=== PATIENT | male | born 1965 | race Caucasian/White ===

== ENCOUNTER 2017-03-20 14:02 | Observation (INO) | payer BC ==
[~2017-03-20] VITALS: Ht 188 cm; Wt 150.2 kg
--- NOTE | 2017-03-20 14:02 | NUR ---
ARRIVAL ARRIVES TO ROOM 122 VIA [facility] WITH [facility]. PATIENT TRANSFERRED SELF FROM ST[facility] TO HOSPITAL BED. O2 RA. IVL IN PLACE. IV STARTED AT [facility]. PATIENT CURRENTLY DENIES CHEST PAIN OR SHORTNESS OF AIR. FAMILY AT BEDSIDE. WILL CONTINUE TO MONITOR.
[2017-03-20 14:20] VITALS: BP 200/102; PULSE 77; RESP 20; TEMP 97.9; O2SAT 97
[2017-03-20 14:21] VITALS: Ht 188 cm; Wt 150.2 kg
[2017-03-20] MEDS ORDERED: HYDR25TA PO (14:25)
[2017-03-20] MEDS ORDERED: ASPI-557 PO (14:25)
[2017-03-20] MEDS ORDERED: MULT-933 PO (14:25)
[2017-03-20] MEDS ORDERED: LISI40TA4 PO (14:25)
[2017-03-20] MEDS ORDERED: PRN ORDERS MC (14:30)
[2017-03-20] MEDS ORDERED: ONDANSETRON 4mg/2ml INJECTION IV PRN (14:30)
[2017-03-20] MEDS ORDERED: MORPHINE SULFATE 4 MG SYRINGE IV PRN (14:30)
[2017-03-20] MEDS: LABETALOL 100 MG TABLET PO SCH (14:37)
[2017-03-20 14:46] VITALS: BP 181/93; PULSE 79
[2017-03-20 15:04] VITALS: PULSE 76; RESP 20
--- NOTE | 2017-03-20 15:16 | DI ---
Indication: ITS.REASON: hypertension PROCEDURE: CHEST 1 VIEW: Encounter: Initial Comparison: None FINDINGS: The lungs are clear. There is no abnormal airspace opacity, pleural effusion or pneumothorax identified. The cardiac silhouette is mild to moderately enlarged. The pulmonary vasculature and mediastinum are within normal limits. No significant skeletal abnormality is seen. IMPRESSION: Mild to moderate enlargement of the cardiac silhouette could be due to cardiomegaly or pericardial effusion. .
--- NOTE | 2017-03-20 15:41 | HPPDOC ---
HPI - Adult Date DATE: 03/20/17 TIME: 14:29 General Date of Admission Date of Admission: March 20, 2017 at 14:02 Chief Complaint: hypertensive urgency History of Present Illness Boogie is a 51 year old male who was being seen in [place] earlier today for 2 tick bites when he was found to have diastolic BP in the 100s. He was taken to [facility] ED and was given 2 doses of IV Labetalol, oral Norvasc 10mg and Aspirin 324mg. His troponin was found to be 0.140 and K+ 3.4. EKG was Sinus rhythm without ischemic changes. He was transferred to [facility] and admitted to . Upon arrival to the Surgical unit his BP was 200/104. He reports fever, dizziness, lightheadedness and nausea that he associated with his tick bites. He reports a "massive headache yesterday". He states that his PCP Dr. Zurita put him on Lisinopril and HCTZ a long time ago and has increased them 1 time. He has not been seen in some time because he gets 1 year of refills when he is seen. He also does not measure his BP at home. He denies recent illness, chills , sore throat, cough, chest pain, dyspnea, diarrhea or dysuria. Past Medical History Past Medical History Metabolic: hypertension, other (obesity), DENIES: diabetes, hypercholesterolemia Cardiac: DENIES: A-fib, CAD, CHF, NV Surgical History General: hernia Current Medications Home Meds Reported Medications Multivitamin (Multi-Day Vitamins) 1 Each Tablet, 1 TAB PO DAILY, #30 TAB 03/20/17 Aspirin (Aspir 81) 81 Mg Tablet., 1 TAB PO DAILY, #30 TAB 5 Refills 03/20/17 Hydrochlorothiazide (Hydrochlorothiazide) 25 Mg Tablet, 1 TAB PO WB, TAB 03/20/17 Lisinopril (Lisinopril) 40 Mg Tablet, 40 MG PO DAILY for HYPERTENSION, TAB 03/20/17 Allergies: Coded Allergies: No Known Drug Allergies (Verified Allergy, Unknown, 03/20/17) Family History FOUND: diabetes Vaccines Social History Smoking Status: Never smoker Substance Use Type: does not use Marital Status: Sexuality: female partner Advance Directives: No DPOA for Healthcare Only Review of Systems Constitutional: REPORTS: dizziness, fever, DENIES: chills, fatigue, syncope, weakness Eyes Vision: DENIES: blurring ENMT Hearing: DENIES: tinnitus Balance: DENIES: vertigo Sinuses: NOT FOUND: rhinorrhea Mouth/Throat: DENIES: sore throat Cardiovascular DENIES: chest pain, dyspnea on exertion, murmur, orthopnea, paroxysmal nocturnal dysp Rhythm/Rate: DENIES: irregular beat, palpitations, tachycardia Vascular: pedal edema Pulmonary Respiratory: DENIES: cough, sputum GI Upper Abdomen: nausea, DENIES: vomiting Lower Abdomen: DENIES: blood in stool, diarrhea General: DENIES: dysuria Musculoskeletal General: DENIES: weakness Integumentary Skin: see HPI Neurological General: headache, see HPI, DENIES: seizures, syncope All Other Systems All Other Systems: Reviewed (remainder of 10-point ROS Neg.) Physical Exam General General Nourishment: well nourished, well developed, obese, apparent age Vital Signs Vital Signs Date Time Temp Pulse Resp B/P Pulse Ox O2 Delivery O2 Flow Rate FiO2 03/20/17 14:20 97.9 77 20 200/102 97 Room Air Height (Feet): 6 Height (Inches): 2.00 Telemetry Rhythm: Sinus Rhythm ENMT Brief: FOUND: mucosa moist Neck Brief: NOT FOUND: JVD, carotid bruits Respiratory Brief: FOUND: clear all sneed, equal bilaterally (diminished) Cardiovascular (brief) Cardiac Brief: FOUND: pedal edema (trace), regular rate, regular rhythm, NOT FOUND: click, gallop, murmur Abdomen (brief) Abdominal Brief: FOUND: BS normo active x4, soft, NOT FOUND: tender Integumentary (brief) Integumentary Brief: FOUND: dry, pink, warm Neurologic RN Documented GCS Eye Opening: Verbal: Motor: Total: Psychiatric (brief) FOUND: alert, attentive, oriented EKG SR, NSST changes Radiology DATE OF EXAM: 03/20/17 ORDERING DOCTOR: PAIGE VENEGAS APRN TYPE OF EXAM: CHEST 1 VIEW REASON FOR EXAM: hypertension Indication: ITS.REASON: hypertension PROCEDURE: CHEST 1 VIEW: Encounter: Initial Comparison: None FINDINGS: The lungs are clear. There is no abnormal airspace opacity, pleural effusion or pneumothorax identified. The cardiac silhouette is mild to moderately enlarged. The pulmonary vasculature and mediastinum are within normal limits. No significant skeletal abnormality is seen. IMPRESSION: Mild to moderate enlargement of the cardiac silhouette could be due to cardiomegaly or pericardial effusion. Assessment & Plan Problems: (1) Hypertensive urgency Status: Acute Assessment & Plan: Start Labetalol 200mg po BID, and continue home Lisinopril and HCTZ. Hydralazine 20mg IV Q4H PRN SBP >180 (2) Obesity Status: Chronic Qualifiers: Obesity type: due to excess calories Obesity severity: morbid Qualified Codes: E66.01 - Morbid (severe) obesity due to excess calories Plan/Intensity of Service Repeat Troponin is negative, will continue to trend.Echo report pending. HTN: Start Labetalol 200mg po BID, and continue home Aspirin, Lisinopril and HCTZ. Hydralazine 20mg IV Q4H PRN SBP >180. Lovenox for DVT prophylaxis. DVT Prophylaxis: Lovenox Code Status Full Code Hospital Course Summary Disclaimer The hospital course summary below is not to be considered part of the above Progress Note. PAIGE VENEGAS CREW PERSON March 20, 2017 14:33
[2017-03-20] MEDS: ENOXAPARIN 40 MG/0.4 ML INJECTION SQ SCH (15:45)
[2017-03-20] MEDS ORDERED: POTASSIUM CHLORIDE 20 MEQ TABLET PO ONE (15:45)
[2017-03-20 15:49] VITALS: BP 159/84; PULSE 79
--- NOTE | 2017-03-20 17:53 | NUR ---
STATUS PT HAS DENIED CHEST PAIN THIS SHIFT. UPON TRANSFERRING TO AND FROM BATHROOM, PT REPORTED SOA. PT STATED HE HAS BEEN EXPERIENCED SOA WITH EXERTION WITHIN THE PAST FEW WEEKS AND THIS SOA IS NOT NEW. PT'S BP DECREASED WITH MEDICATION ADMINISTRATION INTO THE 150'S SYSTOLIC. PT HAS DENIED N/V. ADEQUATE PO INTAKE OBTAINED THIS SHIFT. PT UP AD ESTER. FAMILY PRESENT IN ROOM SINCE ADMIT. TELE NSR. VITALS STABLE ON ROOM AIR. WILL CONTINUE TO MONITOR.
[2017-03-20] MEDS: ACETAMINOPHEN 325 MG TABLET PO PRN (18:12)
[2017-03-20 19:03] VITALS: BP 185/93; PULSE 76; RESP 20; TEMP 98.7; O2SAT 98
[2017-03-20] MEDS ORDERED: KETOROLAC 30mg/ml INJECTION IV ONE (22:00)
[2017-03-20] MEDS ORDERED: DiphenhydrAMINE 25 MG CAPSULE PO ONE (22:00)
[2017-03-20] MEDS ORDERED: IBUPROFEN 400 MG TABLET PO PRN (22:00)
[2017-03-20] MEDS ORDERED: ACETAMINOPHEN/CODEINE 300mg/30mg TABLET PO PRN (22:00)
[2017-03-20] MEDS ORDERED: TRAMADOL 50 MG TABLET PO PRN (22:00)
[2017-03-21 00:02] VITALS: BP 128/65; PULSE 83; RESP 17; TEMP 98.7; O2SAT 94
[2017-03-21] MEDS: LABETALOL 100 MG TABLET PO SCH ×2 (00:27→08:24)
[2017-03-21] MEDS: ACETAMINOPHEN 325 MG TABLET PO PRN (00:27)
--- NOTE | 2017-03-21 01:17 | NUR ---
Chart Check 24 hour chart check completed
[2017-03-21 02:48] LABS: BASOPHILS % (AUTO) 0.3 % (0-2); EOSINOPHILS # (AUTO) 0.4 T/MM3 (0-0.5); EOSINOPHILS % (AUTO) 3.9 % (0-4); HCT - HEMATOCRIT 40.2 % (41-53); HGB - HEMOGLOBIN 13.2 GM/DL (13.5-17.5); IMMATURE GRANULOCYTE # (AUTO) 0.02 T/MM3 (0.00-0.03); IMMATURE GRANULOCYTE % (AUTO) 0.2 % (0.0-0.5); LYMPHOCYTES % (AUTO) 31.2 % (23-45); MEAN CORPUSCULAR HGB 27.6 UUG (26-34); MEAN CORPUSCULAR HGB CONC(MCHC 32.8 GM/DL (31-37); MEAN CORPUSCULAR VOLUME 84.1 UM3 (80-100); MEAN PLATELET VOLUME 10.3 UM3 (9.4-12.4); MONOCYTES # (AUTO) 0.6 T/MM3 (0-0.8); MONOCYTES % (AUTO) 5.8 % (0-9.0); NEUTROPHILS #(AUTO)-ABSOLUTE 5.7 T/MM3 (1.8-7.7); NEUTROPHILS % (AUTO) 58.6 % (33-66); RED BLOOD COUNT 4.78 M/MM3 (4.50-5.90); WBC - WHITE BLOOD COUNT 9.7 T/MM3 (4.5-11.0)
[2017-03-21 02:56] LABS: LDL CHOLESTEROL,CALCULATED 101.4 (66-159); RISK FACTOR 5.2 RATIO (0-5.0); VLDL CHOLESTEROL 38.6 MG/DL (0-28)
[2017-03-21 02:58] LABS: ANION GAP 11 MEQ/L (5-15); BUN/CREATININE RATIO 19 RATIO (6-26); CALCIUM 9.3 MG/DL (8.4-10.2); CHLORIDE 101 MEQ/L (98-107); CO2 - CARBON DIOXIDE 29 MEQ/L (22-30); CREATININE 1.1 MG/DL (0.8-1.5); GLOMERULAR FILTRATION RATE 71; GLUCOSE 153 MG/DL (75-110); MAGNESIUM 2.1 MG/DL (1.6-2.3); POTASSIUM 3.5 MEQ/L (3.6-5); SODIUM 141 MEQ/L (134-144)
[2017-03-21 04:22] VITALS: BP 136/81; PULSE 81; RESP 21; TEMP 98.9; O2SAT 94
--- NOTE | 2017-03-21 06:25 | NUR ---
SUMMARY RESTED THROUGH PART OF THE NIGHT WITH EYES CLOSED. MEDICATED AT HS WITH TORADOL, ZOFRAN, AND BENADRYL FOR A PERSISTENT, SEVERE SILVERMAN. ORDERS RECEIVED BY ANGELICA BROWNING APRN. LATER MEDICATED WITH TYLENOL #3 FOR A MODERATE SILVERMAN. DENIES SILVERMAN THIS AM. ONE DOSE OF PRN HYDRALAZINE GIVEN AT BEGINNING OF SHIFT. NO FURTHER NEEDS FOR HYDRALAZINE DURING THE NIGHT. PT IS UP AD ESTER TO THE BATHROOM. SPOUSE REMAINS AT THE BEDSIDE. NO FURTHER CHANGE IN ASSESSMENT. WILL CONTINUE TO MONITOR.
--- NOTE | 2017-03-21 06:48 | NUR ---
FALL RISK ASSESSMENT - PHARMACY This patient has a MEDIUM FALL RISK with medications. Patient's Risk Score >3 <6. Medication appropriateness: Medication ordered for hypertension appropriate including Labetalol 200 mg bid, Hydrochlorothiazide 25 mg daily, Lisinopril 40 mg daily, and Hydralazine 20 mg iv prn. The blood pressures have been normal to a liitle high, and the pulses have ran okay. No issues with hypotension. The patient has take very little pain medication. Recommdations: Continue care for a moderate risk patient. Wicho Trammell, Pharmacist
--- NOTE | 2017-03-21 07:22 | NUR ---
PHYSICIAN CONSULT FOR TICK BITE ATTEMPTED TO CONSULT DR. WILSON PER ORDER FROM ANGELICA BROWNING APRN. DR. WILSON STATED IT WOULD BE A COUPLE DAYS BEFORE SHE WOULD BE ABLE TO SEE HIM. ANGELICA NOTIFIED-OK WITH CONSULTING HOSPITALIST. DR. OLSON NOTIFIED.
[2017-03-21 07:40] VITALS: PULSE 81; RESP 21
[2017-03-21 07:41] VITALS: BP 143/77; PULSE 77; RESP 16; TEMP 99.4; O2SAT 94
[2017-03-21] MEDS ORDERED: HYDROCHLOROTHIAZIDE 25 MG TABLET PO SCH (08:00)
[2017-03-21] MEDS: ENOXAPARIN 40 MG/0.4 ML INJECTION SQ SCH (08:24)
--- NOTE | 2017-03-21 08:41 | NUR ---
CM CM IN TO VISIT PATIENT, HE IS A&O. HAS BEEN PRESENT, BUT OUT OF ROOM AT THIS TIME. PATIENT PLANS TO DISCHARGE HOME, DENIES DISCHARGE NEEDS. CM CONTACT INFORMATION GIVEN. Addendum: 03/21/17 at 0842 by JANA MALDONADO RN Amended: Links added.
[2017-03-21] MEDS ORDERED: ENOXAPARIN 40 MG/0.4 ML INJECTION SQ SCH (09:00)
[2017-03-21] MEDS ORDERED: LISINOPRIL 40 MG TABLET PO SCH (09:00)
[2017-03-21] MEDS ORDERED: ASPIRIN *EC* 81mg TABLET PO SCH (09:00)
[2017-03-21] MEDS ORDERED: DOXYCYCLINE 100 MG TABLET PO SCH (10:00)
--- NOTE | 2017-03-21 10:14 | CONSPD ---
BRET CORONA V EDITOR DEPARTMENT 03/21/17 1005: Consultation Info Date DATE: 03/21/17 TIME: 10:01 Date of Consultation: March 21, 2017 Attending Physician: Patricia Reason for Consultation: Tick bites HPI - Adult Date DATE: 03/21/17 TIME: 10:01 General Chief Complaint: hypertensive urgency, Tick bites History of Present Illness Patient is a 51-year-old male who presented to his primary care provider in [place], [place] yesterday for evaluation of dizziness, nausea and known tick bites. Upon arrival to the clinic. He was found to be hypertensive with a diastolic blood pressure in the low 100s. He was then transferred to [facility] emergency room for further evaluation. There he was given labetalol and Norvasc as well as aspirin. Troponin was found to be elevated at 0.140. Patient was then transferred to [facility] under the care of Dr. Peoples for further cardiac evaluation and treatment. Today, medical consultation was placed to the hospitalist services for evaluation, recommendations for treatment of tick bites. Patient is seen this morning on initial examination. He reports that he initially found the 1st tick bite on the left lateral thigh on Saturday. The tick was removed at that time. Erythema continued to grow. On Monday 03/19. Patient's found a 2nd tick on his left mid thoracic back that appeared to be . The following day, yesterday, he began having systemic symptoms including chills, nausea and dizziness. Today he is feeling better and without complaints of pain. Eyes having fevers or chills, however, he does feel cold overall. No chest pain, shortness of breath or GI complaints. He is noted to have 2 areas of erythema migrans surrounding each bite. Past Medical History Past Medical History Hypertension Cardiomegaly(reported by patient) Chronic tobacco dependence Surgical History Patient's Surgical History: Right inguinal hernia repair Left right breast tissue removal- as a child Current Medications Home Meds Reported Medications Multivitamin (Multi-Day Vitamins) 1 Each Tablet, 1 TAB PO DAILY, #30 TAB 03/20/17 Aspirin (Aspir 81) 81 Mg Tablet.dr, 1 TAB PO DAILY, #30 TAB 5 Refills 03/20/17 Hydrochlorothiazide (Hydrochlorothiazide) 25 Mg Tablet, 1 TAB PO WB, TAB 03/20/17 Lisinopril (Lisinopril) 40 Mg Tablet, 40 MG PO DAILY for HYPERTENSION, TAB 03/20/17 Allergies: Coded Allergies: No Known Drug Allergies (Verified Allergy, Unknown, 03/20/17) Family History Family History: Father-COPD Mother-CHF, diabetes Social History Smoking Status: Current every day smoker Substance Use Type: does not use Alcohol Intake: none Marital Status: Sexuality: female partner Housing: house Advance Directives: No DPOA for Healthcare Only Social History Comments PCP Dr Zurita ([place], [place]) Review of Systems Constitutional: REPORTS: chills Integumentary Skin: color change, other (Erythema migrans to left lateral thigh and left thoracic back), see HPI Physical Exam General General Nourishment: well nourished, well developed, obese Vital Signs Vital Signs Date Time Temp Pulse Resp B/P Pulse Ox O2 Delivery O2 Flow Rate FiO2 03/21/17 07:41 99.4 77 16 143/77 94 Room Air Height (Feet): 6 Height (Inches): 2.00 Telemetry Rhythm: Sinus Rhythm ENMT Brief: FOUND: mucosa moist, normal dentition, NOT FOUND: pharnyx erythema Neck Brief: FOUND: midline, NOT FOUND: adenopathy, carotid bruits, tracheal deviation Respiratory Brief: FOUND: clear all sneed, equal bilaterally, NOT FOUND: wheezes Cardiovascular (brief) Cardiac Brief: FOUND: regular rate, regular rhythm, NOT FOUND: murmur, pedal edema Abdomen (brief) Abdominal Brief: FOUND: BS normo active x4, soft, NOT FOUND: distended, tender Integumentary (brief) Integumentary Brief: FOUND: dry, other (erythema migrains- Left lateral thigh, left mid back), pink, warm Neurologic (brief) Neurological Brief: FOUND: cranial 2-12 intact Neurologic RN Documented GCS Eye Opening: Verbal: Motor: Total: Psychiatric (brief) FOUND: alert, attentive, normal affect, oriented Laboratory Laboratory Tests Test 03/20/17 14:53 03/20/17 20:23 03/21/17 02:23 Magnesium Level 2.0MG/DL 2.1MG/DL Troponin I < 0.012ng/ml < 0.012ng/ml < 0.012ng/ml Chemistry Specimen Hemolysis < 15 < 15 < 15 White Blood Count 9.7T/MM3 Red Blood Count 4.78M/MM3 Hemoglobin 13.2GM/DL Hematocrit 40.2% Mean Corpuscular Volume 84.1UM3 Mean Corpuscular Hemoglobin 27.6UUG Mean Corpuscular Hemoglobin Concent 32.8GM/DL RDW Standard Deviation 46.1FL Platelet Count 270T/MM3 Mean Platelet Volume 10.3UM3 Immature Granulocyte % (Auto) 0.2% Neutrophils (%) (Auto) 58.6% Lymphocytes (%) (Auto) 31.2% Monocytes (%) (Auto) 5.8% Eosinophils (%) (Auto) 3.9% Basophils (%) (Auto) 0.3% Absolute Immature Granulocyte (auto 0.02T/MM3 Absolute Neutrophils (auto) 5.7T/MM3 Absolute Lymphocytes (auto) 3.0T/MM3 Absolute Monocytes (auto) 0.6T/MM3 Absolute Eosinophils (auto) 0.4T/MM3 Absolute Basophils (auto) 0.0T/MM3 Turbidity < 20 Sodium Level 141MEQ/L Potassium Level 3.5MEQ/L Chloride Level 101MEQ/L Carbon Dioxide Level 29MEQ/L Anion Gap 11MEQ/L Blood Urea Nitrogen 21.0MG/DL Creatinine 1.1MG/DL Glomerular Filtration Rate Calc 71 BUN/Creatinine Ratio 19RATIO Glucose Level 153MG/DL Calculated Osmolality 277MOSM/KG Calcium Level 9.3MG/DL Icterus Index < 2 Triglycerides Level 193MG/DL Cholesterol Level 173MG/DL LDL Cholesterol, Calculated 101.4 VLDL Cholesterol 38.6MG/DL HDL Cholesterol Direct 33MG/DL Cholesterol/HDL Ratio 5.2RATIO Impression/Recommendation Problems: (1) Erythema migrans (Lyme disease) Status: Acute (2) Tick bite Status: Acute Qualifiers: Encounter type: initial encounter Qualified Codes: W57.XXXA - Bitten or stung by nonvenomous insect and other nonvenomous arthropods, initial encounter (3) Hypertension Status: Chronic (4) Tobacco dependence Status: Chronic (5) Obesity Status: Chronic Qualifiers: Obesity type: due to excess calories Obesity severity: morbid Qualified Codes: E66.01 - Morbid (severe) obesity due to excess calories Recommendation Continue cardiac evaluation and hypertension management as per Dr. Peoples Based on clinical examination of the erythema migrans as well as history of known tick bites recommend treatment for Lyme disease. Doxycycline 100 milligrams twice a day for 14 day course ending on 04/05/17 May use Tylenol or ibuprofen as needed for pain or fevers. Recommend follow up with PCP Dr Zurita in 1 week for recheck or return to the ER for worsening symptoms. Encourage tobacco cessation Appreciate medical consultation. We will continue to follow patient during his stay at [facility] ERIK OLSON MD 03/21/17 1230: Past Medical History Current Medications Home Meds Reported Medications Multivitamin (Multi-Day Vitamins) 1 Each Tablet, 1 TAB PO DAILY, #30 TAB 03/20/17 Aspirin (Aspir 81) 81 Mg Tablet.dr, 1 TAB PO DAILY, #30 TAB 5 Refills 03/20/17 Hydrochlorothiazide (Hydrochlorothiazide) 25 Mg Tablet, 1 TAB PO WB, TAB 03/20/17 Lisinopril (Lisinopril) 40 Mg Tablet, 40 MG PO DAILY for HYPERTENSION, TAB 03/20/17 Allergies: Coded Allergies: No Known Drug Allergies (Verified Allergy, Unknown, 03/20/17) Impression/Recommendation Problems: (1) Erythema migrans (Lyme disease) Status: Acute (2) Tick bite Status: Acute Qualifiers: Encounter type: initial encounter Qualified Codes: W57.XXXA - Bitten or stung by nonvenomous insect and other nonvenomous arthropods, initial encounter (3) Hypertension Status: Chronic (4) Tobacco dependence Status: Chronic (5) Obesity Status: Chronic Qualifiers: Obesity type: due to excess calories Obesity severity: morbid Qualified Codes: E66.01 - Morbid (severe) obesity due to excess calories Recommendation Have independently interviewed and examined pt. Chart reviewed. Case discussed with my EDITOR DEPARTMENT. Care plan developed with my supervision; agree with above. Recent tick bites. The one on his back more problematic- found a tick there. Very itchy. Did have some purulent drainage. Some fevers/chills. No n/v/ d. Urinating well. Lungs; decreased, no distress CV: regular Skin: area of erythema on left lateral leg and back c/w with recent insect bite. MSE: awake alert appropriate Plan: Doxycycline 100mg BID for 14 day. Try not to scratch area. Keep clean and dry-warm soapy water with gentle scrubbing as needed. Topical Benadryl as needed for itch. F/U with PCP BRET CORONA APRN March 21, 2017 10:05 ERIK OLSON MD March 21, 2017 12:30
[2017-03-21] MEDS ORDERED: POTASSIUM CHLORIDE 20 MEQ TABLET PO ONE (10:15)
[2017-03-21 15:38] VITALS: BP 149/80; PULSE 82; RESP 18; TEMP 98.7; O2SAT 93
[2017-03-21] MEDS ORDERED: LABE100T PO (16:51)
[2017-03-21] MEDS ORDERED: ATOR40TA PO (16:51)
[2017-03-21] MEDS ORDERED: DOXY100T2 PO (16:51)
--- NOTE | 2017-03-21 17:05 | DSPDOC ---
General Date Date DATE: 03/21/17 TIME: 16:54 Attending Physician Kye Peoples MD Admitting Physician Kye Peoples MD Consulting Physician Anson Gomez MD Admitting Diagnosis Hypertensive Urgency Discharge Diagnosis Hypertensive urgency Laboratory Laboratory Tests Test 03/20/17 14:53 03/20/17 20:23 03/21/17 02:23 Magnesium Level 2.0MG/DL 2.1MG/DL Troponin I < 0.012ng/ml < 0.012ng/ml < 0.012ng/ml Chemistry Specimen Hemolysis < 15 < 15 < 15 White Blood Count 9.7T/MM3 Red Blood Count 4.78M/MM3 Hemoglobin 13.2GM/DL Hematocrit 40.2% Mean Corpuscular Volume 84.1UM3 Mean Corpuscular Hemoglobin 27.6UUG Mean Corpuscular Hemoglobin Concent 32.8GM/DL RDW Standard Deviation 46.1FL Platelet Count 270T/MM3 Mean Platelet Volume 10.3UM3 Immature Granulocyte % (Auto) 0.2% Neutrophils (%) (Auto) 58.6% Lymphocytes (%) (Auto) 31.2% Monocytes (%) (Auto) 5.8% Eosinophils (%) (Auto) 3.9% Basophils (%) (Auto) 0.3% Absolute Immature Granulocyte (auto 0.02T/MM3 Absolute Neutrophils (auto) 5.7T/MM3 Absolute Lymphocytes (auto) 3.0T/MM3 Absolute Monocytes (auto) 0.6T/MM3 Absolute Eosinophils (auto) 0.4T/MM3 Absolute Basophils (auto) 0.0T/MM3 Turbidity < 20 Sodium Level 141MEQ/L Potassium Level 3.5MEQ/L Chloride Level 101MEQ/L Carbon Dioxide Level 29MEQ/L Anion Gap 11MEQ/L Blood Urea Nitrogen 21.0MG/DL Creatinine 1.1MG/DL Glomerular Filtration Rate Calc 71 BUN/Creatinine Ratio 19RATIO Glucose Level 153MG/DL Calculated Osmolality 277MOSM/KG Calcium Level 9.3MG/DL Icterus Index < 2 Triglycerides Level 193MG/DL Cholesterol Level 173MG/DL LDL Cholesterol, Calculated 101.4 VLDL Cholesterol 38.6MG/DL HDL Cholesterol Direct 33MG/DL Cholesterol/HDL Ratio 5.2RATIO Laboratory Tests Test 03/20/17 14:53 03/20/17 20:23 03/21/17 02:23 Magnesium Level 2.0MG/DL (1.6-2.3) 2.1MG/DL (1.6-2.3) Troponin I < 0.012ng/ml (0-0.12) < 0.012ng/ml (0-0.12) < 0.012ng/ml (0-0.12) Chemistry Specimen Hemolysis < 15 (0-25) < 15 (0-25) < 15 (0-25) White Blood Count 9.7T/MM3 (4.5-11.0) Red Blood Count 4.78M/MM3 (4.50-5.90) Hemoglobin 13.2GM/DL (13.5-17.5) Hematocrit 40.2% (41-53) Mean Corpuscular Volume 84.1UM3 (80-100) Mean Corpuscular Hemoglobin 27.6UUG (26-34) Mean Corpuscular Hemoglobin Concent 32.8GM/DL (31-37) RDW Standard Deviation 46.1FL (36.9-50.2) Platelet Count 270T/MM3 (130-400) Mean Platelet Volume 10.3UM3 (9.4-12.4) Immature Granulocyte % (Auto) 0.2% (0.0-0.5) Neutrophils (%) (Auto) 58.6% (33-66) Lymphocytes (%) (Auto) 31.2% (23-45) Monocytes (%) (Auto) 5.8% (0-9.0) Eosinophils (%) (Auto) 3.9% (0-4) Basophils (%) (Auto) 0.3% (0-2) Absolute Immature Granulocyte (auto 0.02T/MM3 (0.00-0.03) Absolute Neutrophils (auto) 5.7T/MM3 (1.8-7.7) Absolute Lymphocytes (auto) 3.0T/MM3 (1-4.8) Absolute Monocytes (auto) 0.6T/MM3 (0-0.8) Absolute Eosinophils (auto) 0.4T/MM3 (0-0.5) Absolute Basophils (auto) 0.0T/MM3 (0-0.2) Turbidity < 20 (0-20) Sodium Level 141MEQ/L (134-144) Potassium Level 3.5MEQ/L (3.6-5) Chloride Level 101MEQ/L (98-107) Carbon Dioxide Level 29MEQ/L (22-30) Anion Gap 11MEQ/L (5-15) Blood Urea Nitrogen 21.0MG/DL (9-20) Creatinine 1.1MG/DL (0.8-1.5) Glomerular Filtration Rate Calc 71 BUN/Creatinine Ratio 19RATIO (6-26) Glucose Level 153MG/DL (75-110) Calculated Osmolality 277MOSM/KG (261-280) Calcium Level 9.3MG/DL (8.4-10.2) Icterus Index < 2 (0-7) Triglycerides Level 193MG/DL (40-160) Cholesterol Level 173MG/DL (132-199) LDL Cholesterol, Calculated 101.4 (66-159) VLDL Cholesterol 38.6MG/DL (0-28) HDL Cholesterol Direct 33MG/DL (40-60) Cholesterol/HDL Ratio 5.2RATIO (0-5.0) Radiology DATE OF EXAM: 03/20/17 ORDERING DOCTOR: PAIGE VENEGAS APRN TYPE OF EXAM: CHEST 1 VIEW REASON FOR EXAM: hypertension Indication: ITS.REASON: hypertension PROCEDURE: CHEST 1 VIEW: Encounter: Initial Comparison: None FINDINGS: The lungs are clear. There is no abnormal airspace opacity, pleural effusion or pneumothorax identified. The cardiac silhouette is mild to moderately enlarged. The pulmonary vasculature and mediastinum are within normal limits. No significant skeletal abnormality is seen. IMPRESSION: Mild to moderate enlargement of the cardiac silhouette could be due to cardiomegaly or pericardial effusion History of Present Illness Boogie is a 51 year old male who was being seen in [place] earlier today for 2 tick bites when he was found to have diastolic BP in the 100s. He was taken to [facility] ED and was given 2 doses of IV Labetalol, oral Norvasc 10mg and Aspirin 324mg. His troponin was found to be 0.140 and K+ 3.4. EKG was Sinus rhythm without ischemic changes. [place] [facility] [place] to . Upon arrival to the Surgical unit his BP was 200/104. He reports fever, dizziness, lightheadedness and nausea that he associated with his tick bites. He reports a "massive headache yesterday". He states that his PCP Dr. Zurita put him on Lisinopril and HCTZ a long time ago and has increased them 1 time. He has not been seen in some time because he gets 1 year of refills when he is seen. He also does not measure his BP at home. He denies recent illness, chills , sore throat, cough, chest pain, dyspnea, diarrhea or dysuria. Objective Vital Signs Vital signs Vital Signs 03/21/17 03/21/17 03/21/17 07:40 07:41 15:38 Temp 99.4 98.7 Pulse 81 77 82 Resp 21 16 18 B/P 143/77 149/80 Pulse Ox 94 93 O2 Delivery Room Air Room Air Telemetry Rhythm: Sinus Rhythm Height (Feet): 6 Height (Inches): 2.00 Weight (Kilograms): 150.200 General Alert, Obese, Orientated x 3, Cooperative ENMT (Brief) mucosa moist Neck (Brief) NOT FOUND: JVD, carotid bruits Respiratory (Brief) clear all sneed, equal bilaterally, NOT FOUND: rales, wheezes Cardiovascular (Brief) regular rate, regular rhythm, NOT FOUND: click, gallop, murmur, pedal edema, rub Abdomen (Brief) BS normo active x4, soft, NOT FOUND: tender Integumentary (Brief) dry, pink, warm Psychiatric (Brief) alert, attentive, normal affect, oriented Laboratory Laboratory Laboratory Tests 03/21/17 02:23 Laboratory Tests 03/21/17 02:23 EKG SR Medications Current Medications Hydralazine HCl (Apresoline) 20 mg Q4HR PRN IV Last administered on 03/20/17 19:15; Start 03/20/17 at 14:30 Morphine Sulfate (Morphine) prn chest pain Q1H PRN IV PAIN; Start 03/20/17 at 14 :30 Ondansetron HCl (Zofran) 4 mg Q6H PRN IV NAUSEA Last administered on 03/20/17 22:01; Start 03/20/17 at 14:30 Miscellaneous Medication (May use PRN orders) 1 PRN PRN MC ; Start 03/20/17 at 14:30 Labetalol HCl (Normodyne) 200 mg BID PO Last administered on 03/21/17 08:24; Start 03/20/17 at 14:30 Enoxaparin Sodium (Lovenox) 40 mg DAILY SQ Last administered on 03/21/17 08:24 ; Start 03/20/17 at 15:45 Aspirin (Ecotrin) 81 mg DAILY PO Last administered on 03/21/17 08:24; Start 03/21/17 at 09:00 Hydrochlorothiazide (Hydrodiuril) 25 mg WB PO Last administered on 03/21/17 08: 24; Start 03/21/17 at 08:00 Lisinopril (Prinivil) 40 mg DAILY PO Last administered on 03/21/17 08:24; Start 03/21/17 at 09:00 Acetaminophen (Tylenol Regular Strength) 1-2 TABS Q5H PRN PO DISCOMFORT Last administered on 03/21/17 00:27; Start 03/20/17 at 18:15 Ketorolac Tromethamine (Toradol) 30 mg O ONCE IV Last administered on 22:01; Start 03/20/17 at 22:00; Stop 03/21/17 at 06:15; Status DC Diphenhydramine HCl (Benadryl) 25 mg O ONCE PO Last administered on 03/20/17 22:02; Start 03/20/17 at 22:00; Stop 03/21/17 at 06:13; Status DC Tramadol HCl (Ultram) 50 mg Q6H PRN PO PAIN; Start 03/20/17 at 22:00 Ibuprofen (Motrin) 400 mg Q8HR PRN PO PAIN; Start 03/20/17 at 22:00 Acetaminophen/ Codeine Phosphate (Tylenol #3) 1 tab Q4H PRN PO PAIN Last administered on 03/21/17 00:27; Start 03/20/17 at 22:00 Doxycycline Hyclate (Vibramycin) 100 mg BIDWM PO Last administered on 03/21/17 10:11; Start 03/21/17 at 10:00 Potassium Chloride (Kdur) 40 meq O ONCE PO Last administered on 03/21/17 10:18 ; Start 03/21/17 at 10:15; Stop 03/21/17 at 10:18; Status DC Atorvastatin Calcium (LIPITOR 40 mg) 40 mg HS PO ; Start 03/21/17 at 22:00 Hospital Course Boogie was admitted and serial troponin levels remained negative, EKGs were without ischemic changes. Labetalol was used for BP control with IV Hydralazine PRN. The hospitalist was consulted due to patient tick bites their plan is below : (1) Erythema migrans (Lyme disease) Status: Acute (2) Tick bite Status: Acute Qualifiers: Encounter type: initial encounter Qualified Codes: W57.XXXA - Bitten or stung by nonvenomous insect and other nonvenomous arthropods, initial encounter (3) Hypertension Status: Chronic (4) Tobacco dependence Status: Chronic (5) Obesity Status: Chronic Qualifiers: Obesity type: due to excess calories Obesity severity: morbid Qualified Codes: E66.01 - Morbid (severe) obesity due to excess calories Recommendation Continue cardiac evaluation and hypertension management as per Dr. Peoples Based on clinical examination of the erythema migrans as well as history of known tick bites recommend treatment for Lyme disease. Doxycycline 100 milligrams twice a day for 14 day course ending on 04/05/17 May use Tylenol or ibuprofen as needed for pain or fevers. Recommend follow up with PCP Dr Zurita in 1 week for recheck or return to the ER for worsening symptoms. Encourage tobacco cessation Echo showed LVH with an EF of 63.He will be set up for outpatient Renal US, and possible stress test. Problems: (1) Hypertensive urgency Status: Acute (2) Obesity Status: Chronic (3) Tick bite Status: Acute (4) Erythema migrans (Lyme disease) Status: Acute (5) Tobacco dependence Status: Chronic DVT Prophylaxis: Lovenox Code Status Full Code Home Meds Active Scripts Labetalol HCl (Labetalol HCl) 100 Mg Tablet, 200 MG PO BID for 30 Days, #120 TAB 11 Refills Prov:PAIGE VENEGAS SAL[employer]BLEMENT MANAGER 03/21/17 Atorvastatin Calcium (Lipitor) 40 Mg Tablet, 40 MG PO HS for 30 Days, #30 TAB 2 Refills Prov:PAIGE VENEGAS SAL[employer] ENABLEMENT MANAGER 03/21/17 Doxycycline Hyclate (Doxycycline Hyclate) 100 Mg Tablet, 100 MG PO BIDWM for 15 Days, #30 TAB Prov:THEOPAIGE Landry SALES ENABLEMENT MANAGER 03/21/17 Reported Medications Multivitamin (Multi-Day Vitamins) 1 Each Tablet, 1 TAB PO DAILY, #30 TAB 03/20/17 Aspirin (Aspir 81) 81 Mg Tablet.dr, 1 TAB PO DAILY, #30 TAB 5 Refills 03/20/17 Hydrochlorothiazide (Hydrochlorothiazide) 25 Mg Tablet, 1 TAB PO WB, TAB 03/20/17 Lisinopril (Lisinopril) 40 Mg Tablet, 40 MG PO DAILY for HYPERTENSION, TAB 03/20/17 Discharge Disposition Discharged to home in good and stable condition in the care of himself with new RX for Labetalol, Atorvastatin and Doxycycline. He has a follow up appointment with us on 04/05/17 at 8:50 PAIGE VENEGAS APRN March 21, 2017 17:00
--- NOTE | 2017-03-21 17:10 | NUR ---
DISCHARGE PT DISCHARGED TO HOME AT THIS TIME IN THE COMPANY OF HIS . PT AMBULATED TO THE ER ENTRANCE WITH THE SUPERVISION OF STAFF. DISCHARGE INSTRUCTIONS INCLUDING DIET, ACTIVITY, MEDICATIONS, SCRIPTS, FOLLOW UP APPOINTMENT, DI FOR HYPERTENSION AND REPORTABLE S/S GIVEN AND REVIEWED WITH PATIENT. PT VERBALIZED UNDERSTANDING OF THESE INSTRUCTIONS AND HAD NO FURTHER QUESTIONS. SCRIPTS SENT ELECTRONICALLY TO [facility] IN [place]. IVL DISCONTINUED. ARMBAND REMOVED. PERSONAL BELONGINGS RETURNED.
[2017-03-21] MEDS ORDERED: ATORVASTATIN 40 MG TABLET PO SCH (22:00)
--- NOTE | 2017-03-22 13:40 | ECHOF ---
DATE OF PROCEDURE March 20, 2017 This is a two-dimensional echo with spectral Doppler, color-flow and M-mode. It was obtained in a patient with poorly controlled hypertension. Left atrium is dilated. Left ventricle end-diastolic dimension is normal. Left ventricle wall thickness is increased. LV systolic function is normal with ejection fraction of 63%. Right atrium is normal. Right ventricle is normal. Aortic root dimension is normal. Mitral, aortic, and tricuspid valves are morphologically normal with mild mitral regurgitation and trace of tricuspid insufficiency with normal estimated pulmonary artery systolic pressure of 20. There is no pericardial effusion. IMPRESSION 1. Normal LV systolic function with ejection fraction of 63%. 2. Left atrial dilation. 3. Concentric left ventricular hypertrophy. 4. Mild mitral regurgitation. 5. Trace of tricuspid regurgitation with normal estimated pulmonary artery systolic pressure of 20. MTDD
--- NOTE | 2017-03-26 10:51 | NUR ---
ATTEMPTED POST HOSPITAL FOLLOW UP PHONE CALL #1, NO ANSWER, LEFT VOICE MESSAGE TO RETURN CALL TO CM.
== END 2017-03-21 17:10 | disposition home or self-care (01) ==
LOC: SRG 14:02
PROVIDERS: ADMIT Internal Medicine Cardiovascular Disease; ATTEND Internal Medicine Cardiovascular Disease
DX: S70.362A Insect bite (nonvenomous), left thigh, initial encounter (principal); W57.XXXA Bitten or stung by nonvenomous insect and other nonvenomous arthropods, initial encounter; Y93.89 Activity, other specified; Y92.89 Other specified places as the place of occurrence of the external cause; Y99.8 Other external cause status; I16.0 Hypertensive urgency; A69.29 Other conditions associated with Lyme disease; S20.462A Insect bite (nonvenomous) of left back wall of thorax, initial encounter; F17.210 Nicotine dependence, cigarettes, uncomplicated; E66.01 Morbid (severe) obesity due to excess calories; Z68.41 Body mass index [BMI] 40.0-44.9, adult; Z79.82 Long term (current) use of aspirin; Z79.899 Other long term (current) drug therapy
CPT/HCPCS: 36415; 71010; 80048; 80061; 83735; 84484; 85025; 93005; 93306; 96374; 96375; 99218; J0360; J1650; J1885; J2405